=== PATIENT | male | born 2000 | race African-American/Black ===

== ENCOUNTER 2025-01-22 12:02 | Emergency (ER) | payer MEDICAID ==
[~2025-01-22] VITALS: Ht 180.3 cm; Wt 58.0 kg
[2025-01-22 12:09] VITALS: O2SAT 100
[2025-01-22] MEDS ORDERED: CEPH750C7 MT (12:58)
[2025-01-22] MEDS ORDERED: SULF-13 MT (12:58)
[2025-01-22 13:11] VITALS: BP 118/72; PULSE 59; RESP 16; TEMP 36.4; O2SAT 97
== END 2025-01-22 13:14 | disposition home or self-care (01) ==
LOC: ER 12:02
DX: L03.011 Cellulitis of right finger (principal)
CPT/HCPCS: 99283

== ENCOUNTER 2025-02-10 14:45 | Emergency (ER) | payer MEDICAID ==
[~2025-02-10] VITALS: Ht 180.3 cm; Wt 59.0 kg
[~2025-02-10 14:45] MED LIST: CEPH750C7 MT; SULF-13 MT
[2025-02-10 15:01] VITALS: TEMP 37; O2SAT 97
[2025-02-10] MEDS: CEFTRIAXONE SODIUM 500MG VIAL IM ONE (17:35)
[2025-02-10] MEDS: LIDOCAINE HCL 1% 20ML VIAL INFIL ONE (17:35)
[2025-02-10] MEDS ORDERED: DOXY100C5 MT (17:39)
[2025-02-10 18:27] VITALS: BP 108/63; PULSE 63; RESP 18; O2SAT 100
== END 2025-02-10 18:28 | disposition home or self-care (01) ==
LOC: ER 14:45
DX: Z11.3 Encounter for screening for infections with a predominantly sexual mode of transmission (principal)
CPT/HCPCS: 87491; 87591; 96372; 99283; J0696; J2003; Z7610